=== PATIENT | male | born 1955 | race Caucasian/White ===

== ENCOUNTER 2021-01-01 16:19 | Emergency (ER) | payer OTHER, MEDICARE ==
[2021-01-01 16:35] VITALS: TEMP 98.5
--- NOTE | 2021-01-01 16:38 | ED ---
Extremity Problem HPI - General Chief complaint: Extremity Problem,Nontraumatic Stated complaint: high blood pressure Time Seen by Provider: 01/01/21 16:24 Source: EMS Mode of arrival: EMS Limitations: no limitations - History of Present Illness Initial comments: Is a 65-year-old male with no past medical history who presents emergency department for lower Chev[place] swelling. The patient states that he noticed it last week and his ankles and has progressed up into his knees. He states that it's worse throughout the day however better when he wakes up in the morning. He states that he has no other associated symptoms. No pain. No shortness of breath or orthopnea. He states that he does not have any chest pain or lightheadedness. No syncope. Patient states that he is otherwise healthy however has not seen a physician a couple of years. He has a smoker and he does drink heavily. He states that he drinks 4-5 beers a throughout the week however on the weekends he can drink a whole case of beer. He denies any abdominal pain. No nausea or vomiting. No other acute complaints. - Related Data Previous Rx's Medication Instructions Recorded Furosemide [Lasix] 20 mg PO DAILY #7 tab 01/01/21 Allergies Allergy/AdvReac Type Severity Reaction Status Date / Time No Known Allergies Allergy Verified 01/01/21 17:15 Review of Systems ROS Statement: Those systems with pertinent positive or pertinent negative responses have been documented in the HPI. ROS Other: All systems not noted in ROS Statement are negative. Past Medical History Past Medical History: No Reported History History of Any Multi-Drug Resistant Organisms: None Reported Additional Past Surgical History / Comment(s): cataract surgery Past Psychological History: No Psychological Hx Reported Smoking Status: Current every day smoker Past Alcohol Use History: Daily Past Drug Use History: Marijuana General Exam - General Exam Comments Initial Comments: Constitutional: Awake alert Appears comfortable Head: Normocephalic atraumatic Eyes: no conjunctival injection No scleral icterus EOMI Neck: No JVD Supple Heart: Tachycardia normal S1-S2 no murmurs Lungs: Clear to auscultation bilaterally No wheezing No rales Abdomen: Soft mild distention nontender Extremities: Is pitting edema up to the knees bilaterally, no erythema or tenderness to palpation DP pulses intact Radial pulses intact Neuro: A&Ox3 No focal neurologic deficits Psych: Appropriate mood and affect Limitations: no limitations Course Vital Signs 01/01/21 01/01/21 01/01/21 16:21 17:30 18:43 Temperature 98.5 F Pulse Rate 131 H 114 H 111 H Respiratory 18 18 20 Rate Blood Pressure 156/117 142/104 151/111 O2 Sat by Pulse 98 98 98 Oximetry - Reevaluation(s) Reevaluation #1: EKG showing sinus tachycardia with a rate of 123. There is no abnormal ST segment changes or T-wave inversions. QTC is 486. Other intervals appear normal. There car a few PVCs present. 01/01/21 17:03 Medical Decision Making - Medical Decision Making This 65-year-old male who presents emergency department for lower extremity black ma. No other symptoms. He did have pitting edema to the bilateral lower extremities however no evidence for pain or redness. The patient had stable vital signs except for some tachycardia on arrival. His heart rate ranged from the 110-120 range. EKG did not reveal an arrhythmia just showed sinus tachycardia. Patient's oxygen saturation was normal. Patient was found have pulmonary edema on his chest x-ray and a elevated BNP. Troponin was negative. Mild elevations in his AST and ALT which is like secondary to his drinking. Otherwise no other remote Leroy findings. I did recommend the patient is seen in the hospital for likely new onset heart failure which could be cardiomyopathy from his drinking or other etiologies. He needs to have this worked up further as an inpatient setting. The patient stated that he did not want stay in the hospital and felt very comfortable doing so. He states that he's been breathing fine and does not want to stay. I advised him that he could've worsening swelling, develop worsening shortness of breath or have underlying heart issues that are not currently diagnosed by the ER workup and could be fatal to him. The patient states that he understands this and would prefer to go home and follow-up with his primary doctor. I did speak with his PCP, Dr. Bolton who stated that he would see him in his office in the next few days. I'm going to s tart him on Lasix 20 mg daily for the next week to week and follow-up with his primary doctor and get further workup performed. The patient was awake and alert and sober. He was able to make his own decisions and had decision-making capability. The patient elected to leave AMA from the hospital and follow-up with his primary doctor as an outpatient. I encouraged and return if he developed any worsening or changing symptoms. All questions were answered. - Lab Data Result diagrams: 01/01/21 16:33 01/01/21 16:33 Lab Results 01/01/21 01/01/21 01/01/21 Range/Units 16:33 16:33 16:33 WBC 9.9 (3.8-10.6) k/uL RBC 4.78 (4.30-5.90) m/uL Hgb 15.7 (13.0-17.5) gm/dL Hct 46.6 (39.0-53.0) % MCV 97.4 (80.0-100.0) fL MCH 32.8 (25.0-35.0) pg MCHC 33.7 (31.0-37.0) g/dL RDW 13.1 (11.5-15.5) % Plt Count 187 (150-450) k/uL MPV 8.5 Neutrophils % 80 % Lymphocytes % 10 % Monocytes % 7 % Eosinophils % 2 % Basophils % 1 % Neutrophils # 7.9 H (1.3-7.7) k/uL Lymphocytes # 1.0 (1.0-4.8) k/uL Monocytes # 0.7 (0-1.0) k/uL Eosinophils # 0.2 (0-0.7) k/uL Basophils # 0.1 (0-0.2) k/uL PT 12.4 H (9.0-12.0) sec INR 1.2 H (<1.2) APTT 20.8 L (22.0-30.0) sec Sodium 133 L (137-145) mmol/L Potassium 4.6 (3.5-5.1) mmol/L Chloride 102 (98-107) mmol/L Carbon Dioxide 20 L (22-30) mmol/L Anion Gap 11 mmol/L BUN 10 (9-20) mg/dL Creatinine 0.88 (0.66-1.25) mg/dL Est GFR (CKD-EPI)AfAm >90 (>60 ml/min/1.73 sqM) Est GFR (CKD-EPI)NonAf 89 (>60 ml/min/1.73 sqM) Glucose 130 H (74-99) mg/dL Calcium 9.5 (8.4-10.2) mg/dL Magnesium 1.9 (1.6-2.3) mg/dL Total Bilirubin 1.8 H (0.2-1.3) mg/dL AST 84 H (17-59) U/L ALT 73 H (4-49) U/L Alkaline Phosphatase 121 (38-126) U/L Troponin I (0.000-0.034) ng/mL NT-Pro-B Natriuret Pep pg/mL Total Protein 6.9 (6.3-8.2) g/dL Albumin 4.3 (3.5-5.0) g/dL TSH (0.465-4.680) mIU/L 01/01/21 01/01/21 01/01/21 Range/Units 16:33 16:33 16:33 WBC (3.8-10.6) k/uL RBC (4.30-5.90) m/uL Hgb (13.0-17.5) gm/dL Hct (39.0-53.0) % MCV (80.0-100.0) fL MCH (25.0-35.0) pg MCHC (31.0-37.0) g/dL RDW (11.5-15.5) % Plt Count (150-450) k/uL MPV Neutrophils % % Lymphocytes % % Monocytes % % Eosinophils % % Basophils % % Neutrophils # (1.3-7.7) k/uL Lymphocytes # (1.0-4.8) k/uL Monocytes # (0-1.0) k/uL Eosinophils # (0-0.7) k/uL Basophils # (0-0.2) k/uL PT (9.0-12.0) sec INR (<1.2) APTT (22.0-30.0) sec Sodium (137-145) mmol/L Potassium (3.5-5.1) mmol/L Chloride (98-107) mmol/L Carbon Dioxide (22-30) mmol/L Anion Gap mmol/L BUN (9-20) mg/dL Creatinine (0.66-1.25) mg/dL Est GFR (CKD-EPI)AfAm (>60 ml/min/1.73 sqM) Est GFR (CKD-EPI)NonAf (>60 ml/min/1.73 sqM) Glucose (74-99) mg/dL Calcium (8.4-10.2) mg/dL Magnesium (1.6-2.3) mg/dL Total Bilirubin (0.2-1.3) mg/dL AST (17-59) U/L ALT (4-49) U/L Alkaline Phosphatase (38-126) U/L Troponin I <0.012 (0.000-0.034) ng/mL NT-Pro-B Natriuret Pep 86663 pg/mL Total Protein (6.3-8.2) g/dL Albumin (3.5-5.0) g/dL TSH 1.410 (0.465-4.680) mIU/L Disposition Clinical Impression: Leg edema, Pulmonary edema Disposition: Left Against Medical Advice Condition: Serious Instructions (If sedation given, give patient instructions): Heart Failure (ER) Prescriptions: Furosemide [Lasix] 20 mg PO DAILY #7 tab Is patient prescribed a controlled substance at d/c from ED?: No Referrals: Harish Bolton DO [Primary Care Provider] - 1-2 days
[2021-01-01 16:50] LABS: Basophils # (A) 0.1 k/uL (0-0.2); Basophils % (A) 1 %; Eosinophils # (A) 0.2 k/uL (0-0.7); Eosinophils % (A) 2 %; HCT 46.6 % (39.0-53.0); HGB 15.7 gm/dL (13.0-17.5); Lymphocytes % (A) 10 %; MCH 32.8 pg (25.0-35.0); MCHC 33.7 g/dL (31.0-37.0); MCV 97.4 fL (80.0-100.0); Mean Platelet Volume 8.5; Monocytes # (A) 0.7 k/uL (0-1.0); Monocytes % (A) 7 %; Neutrophils # (A) 7.9 k/uL (1.3-7.7); Neutrophils % (A) 80 %; Platelet Count 187 k/uL (150-450); RBC 4.78 m/uL (4.30-5.90); RDW 13.1 % (11.5-15.5); WBC 9.9 k/uL (3.8-10.6)
[2021-01-01 17:00] LABS: ALT 73 U/L (4-49); AST 84 U/L (17-59); African American GFR (CKD) >90 (>60 ml/min/1.73 sqM); Albumin 4.3 g/dL (3.5-5.0); Alkaline Phosphatase 121 U/L (38-126); Anion Gap 11 mmol/L; Blood Urea Nitrogen 10 mg/dL (9-20); Calcium 9.5 mg/dL (8.4-10.2); Carbon Dioxide 20 mmol/L (22-30); Chloride 102 mmol/L (98-107); Glucose 130 mg/dL (74-99); Magnesium 1.9 mg/dL (1.6-2.3); Non-African American GFR(CKD) 89 (>60 ml/min/1.73 sqM); Potassium 4.6 mmol/L (3.5-5.1); Sodium 133 mmol/L (137-145); Total Bilirubin 1.8 mg/dL (0.2-1.3); Total Protein 6.9 g/dL (6.3-8.2)
[2021-01-01 17:05] LABS: INR 1.2 (<1.2); Prothrombin Time 12.4 sec (9.0-12.0)
--- NOTE | 2021-01-01 17:09 | XR ---
EXAMINATION: XR chest 2V DATE AND TIME: 01/01/2021 5:03 PM CLINICAL INDICATION: PHH; LE swelling TECHNIQUE: Departmental protocol COMPARISON: None FINDINGS: The lungs show moderate silhouetting of the mid and lower pulmonary vasculature by a fine reticular p attern of increased relation and with several septal lines at the periphery bilaterally. The pleural spaces are negative. The cardiac silhouette is borderline enlarged. The remainder of the mediastinal silhouette is unremar kable. The skeletal structures and soft tissues are negative for acute findings. IMPRESSION: Moderate interstitial phase pulmonary edema.
[2021-01-01 17:22] LABS: Partial Thromboplastin Time 20.8 sec (22.0-30.0)
[2021-01-01] MEDS ORDERED: FUROSEMIDE 10 MG/ML 4 ML VIAL IV STA (18:31)
[2021-01-01 18:44] VITALS: BP 151/111; PULSE 111; RESP 20
== END 2021-01-01 19:17 | disposition left against medical advice (07) ==
LOC: EC 16:19
DX: R60.0 Localized edema (principal); J81.1 Chronic pulmonary edema; F17.200 Nicotine dependence, unspecified, uncomplicated
CPT/HCPCS: 36415; 93005; 83880; 80053; 84443; 83735; 84484; 85025; 85610; 85730; 71046; 99284; 96374; J1940

== ENCOUNTER → 2021-03-20 | Outpatient (CLI) | payer MEDICARE, OTHER ==
[2021-03-20 14:23] LABS: HCT 50.5 % (39.0-53.0); HGB 16.9 gm/dL (13.0-17.5); MCH 32.9 pg (25.0-35.0); MCHC 33.5 g/dL (31.0-37.0); MCV 98.2 fL (80.0-100.0); Mean Platelet Volume 8.5; Platelet Count 213 k/uL (150-450); RBC 5.14 m/uL (4.30-5.90); RDW 13.1 % (11.5-15.5); WBC 7.7 k/uL (3.8-10.6)
[2021-03-20 14:36] LABS: African American GFR (CKD) >90 (>60 ml/min/1.73 sqM); Anion Gap 10 mmol/L; Blood Urea Nitrogen 12 mg/dL (9-20); Carbon Dioxide 25 mmol/L (22-30); Chloride 99 mmol/L (98-107); Non-African American GFR(CKD) 88 (>60 ml/min/1.73 sqM); Sodium 134 mmol/L (137-145)
== END | disposition home or self-care (01) ==
LOC: LABPAT 12:21
PROVIDERS: ATTEND Internal Medicine Interventional Cardiology
DX: Z01.812 Encounter for preprocedural laboratory examination (principal); I50.22 Chronic systolic (congestive) heart failure
CPT/HCPCS: 36415; 80051; 82565; 84520; 85027

== ENCOUNTER 2021-04-20 09:20 | Day surgery (SDC) | payer MEDICARE, OTHER ==
[2021-04-10 11:13] VITALS: BMI 25.8
[~2021-04-20 09:20] MED LIST: ALPRAZolam 0.25 MG TAB PO PRN; ALPRAZolam 0.5 MG TAB PO PRN; ASPIRIN 325 MG TAB PO STA; ATORVASTATIN 80 MG TAB PO STA; HEPARIN SODIUM,PORCINE 10,000 UNIT in SODIUM CHLORIDE 0.9% 1,000 ML IRRIGATION PRN; HEPARIN SODIUM,PORCINE 2,500 UNIT in SODIUM CHLORIDE 0.9% 250 ML IRRIGATION PRN; NITROGLYCERIN SL TABS 0.4 MG TAB SUBLINGUAL PRN; SODIUM CHLORIDE 0.9% 1,000 ML in EMPTY BAG 1 BAG IV ONE
[2021-04-20] MEDS ORDERED: fentaNYL (PF) 50 MCG/ML 2 ML AMP ONE (09:54)
[2021-04-20] MEDS ORDERED: fentaNYL (PF) 50 MCG/ML 2 ML AMP IV ONE (10:02)
[2021-04-20] MEDS ORDERED: MIDAZOLAM 2 MG/2 ML VIAL IV ONE ×3 (10:02→11:26)
[2021-04-20] MEDS ORDERED: VERAPAMIL 2.5 MG/ML 2 ML AMP ONE (10:05)
[2021-04-20] MEDS ORDERED: LIDOCAINE 1% INJ 10MG/ML (20 ML MDV) ONE (10:05)
[2021-04-20] MEDS ORDERED: LIDOCAINE 1% INJ 10MG/ML (10 ML MDV) SQ ONE (10:43)
[2021-04-20] MEDS: LIDOCAINE 1% INJ 10MG/ML (10 ML MDV) SQ ONE ×2 (10:44→10:46)
[2021-04-20] MEDS ORDERED: VERAPAMIL SYRINGE (5 MG/10 ML) INTRAARTER ONE ×2 (10:44→10:45)
[2021-04-20] MEDS ORDERED: HEPARIN SODIUM 1,000 UN/ML (10ML VL) ONE (10:47)
[2021-04-20] MEDS: HEPARIN SODIUM 1,000 UN/ML (10ML VL) IV ONE ×2 (11:05→11:19)
[2021-04-20] MEDS ORDERED: NITROGLYCERIN 1000MCG/10ML SYRINGE INTRACORON ONE (11:37)
[2021-04-20] MEDS ORDERED: CLOPIDOGREL 75 MG TAB ONE (11:43)
[2021-04-20] MEDS ORDERED: IOPAMIDOL-370 125ML BTL INJ ONE (11:45)
[2021-04-20] MEDS ORDERED: CLOPIDOGREL 75 MG TAB PO ONE (11:45)
[2021-04-20] MEDS ORDERED: NITROGLYCERIN SL TABS 0.4 MG TAB SUBLINGUAL PRN (11:49)
[2021-04-20] MEDS ORDERED: ZOLPIDEM 5 MG TAB PO PRN (11:49)
[2021-04-20] MEDS ORDERED: RX INFO: IV CONTRAST WAS GIVEN 1 EACH MISC MISCELLANE PRN (11:49)
[2021-04-20] MEDS ORDERED: ATROPINE SULFATE 0.1 MG/ML 10ML SYRINGE IV PRN (11:49)
[2021-04-20] MEDS ORDERED: MAG HYDROX/AL HYDROX/SIMETH 30 ML CUP PO PRN (11:49)
[2021-04-20] MEDS ORDERED: SODIUM CHLORIDE 0.9% 1,000 ML IV SCH (12:00)
--- NOTE | 2021-04-20 12:30 | ECHOT ---
TRANSESOPHAGEAL ECHOCARDIOGRAM DATE OF SERVICE: 04/20/2021 PERFORMING PHYSICIAN: Raymundo Rose M.D. PROCEDURE PERFORMED: Transesophageal echocardiogram. INDICATION: To evaluate the severity of mitral regurgitation. COMPLICATIONS: None. LEVEL OF SEDATION: Moderate, with sedation length of 15 minutes. PROCEDURE DESCRIPTION: After obtaining informed consent, the patient was brought to the transesophageal echocardiogram suite. The pulse oximetry and heart rate monitors were attached to the patient. Subsequently the transesophageal echocardiogram probe was advanced through the bite guard to the mid esophagus, where 2D echocardiogram images as well as color Doppler images of various cardiac structures were obtained. The procedure was performed using 2D echo as well as color Doppler and pulse Doppler and continuous-wave Doppler. The procedure was completed without any complications. FINDINGS: The left ventricular dimension and systolic function appeared to be impaired. The ejection fraction appeared to be in the range of 35%. Unfortunately, the patient was quite agitated and the study had to be terminated quickly. The mitral valve appeared to be thickened with evidence of moderate mitral regurgitation. The tricuspid valve appeared to have evidence of moderate tricuspid regurgitation. The aortic valve appeared to be thickened and calcified and appeared to be a trileaflet valve. CONCLUSION: 1. Technically difficult study because of the patient's agitation throughout the procedure. 2. Impaired LV function with EF between 35% and 40%. 3. Moderate tricuspid regurgitation. 4. Moderate mitral regurgitation. 5. Aortic sclerosis without stenosis. MMODL / IJN: [id number] /
--- NOTE | 2021-04-20 13:08 | CC ---
CARDIAC CATHETERIZATION REPORT PERFORMING PHYSICIAN: Raymundo Rose M.D. PROCEDURE PERFORMED: 1. Selective left and right coronary angiogram. 2. Left heart catheterization. 3. Intravascular ultrasound (IVUS) of the left main and left circumflex coronary artery. 4. Successful stenting of the proximal left circumflex using a 3.5 x 15 mm Xience GAYLE with an excellent angiographic result. INDICATION: Newly diagnosed cardiomyopathy in this 65-year-old gentleman. APPROACH: Right radial artery. COMPLICATIONS: None. LEVEL OF SEDATION: Moderate, with sedation length of 66 minutes. PROCEDURE DESCRIPTION: After obtaining informed consent, the patient was brought to the cardiac rn labor delivery. The right radial artery was cannulated using micropuncture technique. The micropuncture wire passed easily. Then I placed a 6-Tamazight sheath at the right radial artery. I gave the patient 2 mg of verapamil IA and 6000 units of heparin IV. Selective right and left coronary angiogram was performed using JR4 and JL3.5 catheters. Left heart catheterization was performed using a 6-Tamazight pigtail catheter. After that I did IVUS of the left main and left circumflex and subsequently successful stenting of the left circumflex. Please see separate paragraph for that. SELECTIVE CORONARY ANGIOGRAM: 1. The RCA is a large-caliber vessel. It is a dominant vessel and appeared to have mild disease in the mid portion. 2. The left main is calcified. The distal left main appeared to be hazy with a lesion that angiographically appeared to be in the range of 30%. Intravascular ultrasound was performed and showed that the left main minimal luminal area was 19 mm2 with an area of stenosis of 42%. The left main bifurcates into left circumflex and ramus intermedius and left anterior descending artery. 3. The left circumflex is a large-caliber vessel. It is a nondominant vessel. The proximal left circumflex has a lesion that appeared to be in the range of 70%. Intravascular ultrasound also was applied and showed a minimal luminal area of 2.4 mm2 with an area of stenosis of 81%. 4. The ramus intermedius appeared to have mild disease only. 5. The LAD appeared to have mild disease in the proximal to mid portion. The LAD gives rise to a large diagonal branch which seems to be angiographically normal. INTRAVASCULAR ULTRASOUND (IVUS) OF THE LEFT CIRCUMFLEX AND LEFT MAIN CORONARY ARTERY: The IVUS was applied to the left circumflex and left main coronary artery. For the left circumflex, the minimal luminal area was 2.4 mm2 with an area of stenosis of 81%. For the left main, the minimal luminal area was 11.4 mm2 with an area of stenosis of 42%. PCI OF THE LEFT CIRCUMFLEX: I did predilatation using a 2.5 x 12 mm balloon before I deployed a 3.5 x 15 mm Xience drug-eluting stent where the stent was positioned under fluoroscopic guidance and deployed under 12 atmospheres for 20 seconds with the following angiogram showing excellent angiographic results. CONCLUSION: 1. Intermediate disease involving the left main coronary artery by the distal portion. IVUS was performed and showed an area of stenosis of 40%. 2. Severe disease of the proximal left circumflex. I did perform successful stenting of the left circumflex with an excellent angiographic result. POSTPROCEDURE MANAGEMENT: 1. Dual anti-platelet therapy. 2. Aggressive cholesterol control. 3. Risk factor modifications. 4. Follow up with the patient. MMODL / IJN: [id number] /
[2021-04-20] MEDS: NICOTINE 14MG/24HR PATCH TRANSDERM SCH (15:44)
[2021-04-20] MEDS ORDERED: NICOTINE 14MG/24HR PATCH TRANSDERM ONE (17:15)
[2021-04-21 06:05] LABS: Basophils # (A) 0.1 k/uL (0-0.2); Basophils % (A) 1 %; Eosinophils # (A) 0.6 k/uL (0-0.7); Eosinophils % (A) 6 %; HCT 46.5 % (39.0-53.0); HGB 15.7 gm/dL (13.0-17.5); Lymphocytes % (A) 21 %; MCH 32.6 pg (25.0-35.0); MCHC 33.8 g/dL (31.0-37.0); MCV 96.5 fL (80.0-100.0); Mean Platelet Volume 7.9; Monocytes # (A) 0.9 k/uL (0-1.0); Monocytes % (A) 9 %; Neutrophils % (A) 62 %; Platelet Count 206 k/uL (150-450); RBC 4.82 m/uL (4.30-5.90); RDW 12.6 % (11.5-15.5); WBC 9.7 k/uL (3.8-10.6)
[2021-04-21 06:20] LABS: African American GFR (CKD) >90 (>60 ml/min/1.73 sqM); Anion Gap 7 mmol/L; Blood Urea Nitrogen 10 mg/dL (9-20); Calcium 9.2 mg/dL (8.4-10.2); Carbon Dioxide 25 mmol/L (22-30); Chloride 103 mmol/L (98-107); Glucose 99 mg/dL (74-99); Non-African American GFR(CKD) >90 (>60 ml/min/1.73 sqM); Sodium 135 mmol/L (137-145)
[2021-04-21] MEDS: NICOTINE 14MG/24HR PATCH TRANSDERM SCH (07:30)
[2021-04-21 08:12] VITALS: BP 163/72; PULSE 82; RESP 17; TEMP 97.7
[2021-04-21] MEDS ORDERED: METOPROLOL SUCCINATE (ER) 50 MG TAB.ER.24H PO SCH (09:00)
[2021-04-21] MEDS ORDERED: CLOPIDOGREL 75 MG TAB PO SCH (09:00)
[2021-04-21] MEDS ORDERED: FUROSEMIDE 20 MG TAB PO SCH (09:00)
--- NOTE | 2021-04-21 09:19 | DS ---
DISCHARGE SUMMARY ADMISSION DATE: April 20, 2021. DISCHARGE DATE: April 21, 2021. BRIEF HISTORY: This is a 65-year-old gentleman who was diagnosed recently with cardiomyopathy and underwent yesterday a heart catheterization and stenting of the left circumflex coronary artery. The patient was seen this morning. He is asymptomatic. He is going to be discharged on dual anti-platelet therapy as well as high-intensity statin and will follow up with the patient in the office. MMODL / GAN: [id number] /
== END 2021-04-21 09:41 | disposition home or self-care (01) ==
LOC: CATHCVL 09:20 → 6NMEDSUR 11:47 → CATHCVL 04-21 09:41
PROVIDERS: ATTEND Internal Medicine Interventional Cardiology
DX: I25.10 Atherosclerotic heart disease of native coronary artery without angina pectoris (principal); I25.84 Coronary atherosclerosis due to calcified coronary lesion; I42.9 Cardiomyopathy, unspecified; I08.3 Combined rheumatic disorders of mitral, aortic and tricuspid valves; Z82.49 Family history of ischemic heart disease and other diseases of the circulatory system; Z79.899 Other long term (current) drug therapy; F17.210 Nicotine dependence, cigarettes, uncomplicated; Z20.822 Contact with and (suspected) exposure to COVID-19
CPT/HCPCS: 93312; 93325; 92978; 93458; 80048; 85025; 87635; C9600; C1769 ×4; C1887; C1894 ×2; C1725; C1751; C1753; C1874; S4990 ×2; J2250; J3010; J1644; J2001; Q9967

== ENCOUNTER 2024-04-30 08:37 | Day surgery (SDC) | payer MEDICARE, OTHER ==
[2024-04-24 16:13] VITALS: BMI 25.4
[~2024-04-30 08:37] MED LIST changes: -ALPRAZolam 0.25 MG TAB PO PRN; -ALPRAZolam 0.5 MG TAB PO PRN; -ASPIRIN 325 MG TAB PO STA; -ATORVASTATIN 80 MG TAB PO STA; -HEPARIN SODIUM,PORCINE 10,000 UNIT in SODIUM CHLORIDE 0.9% 1,000 ML IRRIGATION PRN; -HEPARIN SODIUM,PORCINE 2,500 UNIT in SODIUM CHLORIDE 0.9% 250 ML IRRIGATION PRN; +LACTATED RINGERS 1,000 ML IV SCH; +LIDOCAINE 1% (10MG/ML) FOR IV START INTRADERMA PRN; -NITROGLYCERIN SL TABS 0.4 MG TAB SUBLINGUAL PRN; -SODIUM CHLORIDE 0.9% 1,000 ML in EMPTY BAG 1 BAG IV ONE
[2024-04-30] MEDS: IV FLUID CONTINUATION 1,000 ML IV ONE (08:52)
[2024-04-30 09:03] VITALS: TEMP 97.9
[2024-04-30] MEDS ORDERED: PROPOFOL 10 MG/ML 20 ML VIAL IV ONE (09:59)
[2024-04-30 10:01] LABS: African American GFR (CKD) 85 (>60 ml/min/1.73 sqM); Anion Gap 8 mmol/L; Blood Urea Nitrogen 10 mg/dL (9-20); Calcium 9.9 mg/dL (8.4-10.2); Carbon Dioxide 25 mmol/L (22-30); Chloride 103 mmol/L (98-107); Glucose 99 mg/dL (74-99); Non-African American GFR(CKD) 74 (>60 ml/min/1.73 sqM); Sodium 136 mmol/L (137-145)
[2024-04-30 10:07] LABS: Potassium 5.8 mmol/L (3.5-5.1)
[2024-04-30] MEDS: BENZOCAINE SPRAY 1 EACH MM ONE (10:09)
[2024-04-30 11:22] VITALS: RESP 16
[2024-04-30 12:15] VITALS: BP 136/80; PULSE 79
--- NOTE | 2024-06-03 15:46 | P.PCN ---
Date of Procedure: 04/30/23 Operative Findings: Transesophageal echocardiogram report Performing physician Raymundo Rose MD Procedure performed SOFIYA Indication Rule out intracardiac thrombus before cardioversion Complication None Level of sedation The procedure was performed using a propofol with [employer] CONSULTANT in the room Procedure description After obtaining an informed consent the patient was brought to the recovery room. The pulse oximetry and heart rate monitors were attached to the patient. Subsequently the patient was turned into left lateral position. The transesophageal echocardiogram after induction anesthesia was advanced to the mid esophageal were added to the echocardiogram as well as color Doppler and pulse-wave Doppler. The procedure was completed with no complication Conclusion No evidence of any intracardiac thrombus Intact left atrial appendage Impaired LV function with EF around 30 to 35% Moderate to severe mitral regurgitation
--- NOTE | 2024-06-03 15:47 | P.PCN ---
Date of Procedure: 05/04/24 Operative Findings: Cardioversion report Performing physician Raymundo Rose Procedure performed Cardioversion of atrial fibrillation to normal sinus mechanism Complication None Level of sedation The procedure was performed using propofol with [employer] in the room under general anesthesia Procedure description After transesophageal echocardiogram was performed and intracardiac thrombus was ruled out the patient cardioverted from atrial fibrillation to normal sinus mechanism using 200 J on first attempt
== END 2024-04-30 12:20 | disposition home or self-care (01) ==
LOC: OR 08:37
PROVIDERS: ATTEND Internal Medicine Interventional Cardiology
DX: I48.0 Paroxysmal atrial fibrillation (principal); I25.10 Atherosclerotic heart disease of native coronary artery without angina pectoris; I34.0 Nonrheumatic mitral (valve) insufficiency; I10 Essential (primary) hypertension; E78.5 Hyperlipidemia, unspecified; F12.90 Cannabis use, unspecified, uncomplicated; Z79.82 Long term (current) use of aspirin; Z79.899 Other long term (current) drug therapy
CPT/HCPCS: 93312; 93320; 93325; 92960; 80048; J2704